=== PATIENT | female | born 1975 | race Caucasian/White ===

== ENCOUNTER 2020-01-04 04:40 | Emergency (ER) | payer SELFPAY ==
[2020-01-04] MEDS ORDERED: Albuterol 200 PUFF (6.7GM INHALER) ONE (04:50)
[2020-01-04] MEDS ORDERED: predniSONE 20 MG TAB ONE (05:35)
--- NOTE | 2020-01-04 07:03 | RAD ---
CHEST 1 VIEW: Date: 01/04/2020 INDICATION: Shortness of breath. Dyspnea. COMPARISON: None. FINDINGS: Lungs are clear. Heart size is normal. No pleural effusion or pneumothorax is evident. No acute osseo us abnormality is noted. IMPRESSION: No acute cardiopulmonary abnormality. POS: BH
--- NOTE | 2020-01-05 13:43 | EKG ---
Test Reason : Blood Pressure : / mmHG Vent. Rate : 102 BPM Atrial Rate : 102 BPM P-R Int : 136 ms QRS Dur : 090 ms QT Int : 350 ms P-R-T Axes : 076 063 064 degrees QTc Int : 456 ms Sinus tachycardia Otherwise normal ECG Confirmed by LYNN CONWAY ([id number]), assignment desk editor YOSSI RUBY ([id number]) on 01/05/2020 1:43:06 PM Referred By: Confirmed By:LYNN CONWAY
== END 2020-01-04 05:45 | disposition home or self-care (01) ==
LOC: ERS 04:40
DX: J98.01 Acute bronchospasm (principal); Z87.891 Personal history of nicotine dependence
CPT/HCPCS: 71045; 93005; J7512

== ENCOUNTER 2022-11-04 22:20 | Emergency (ER) | payer SELFPAY ==
[2022-11-04 23:11] LABS: Hemoglobin 16.2 g/dL (12.0-16.0); Mean Corpuscular HGB CONC 33.4 g/dL (32.0-36.0); Mean Corpuscular Hemoglobin 33.7 pg (27.0-31.0); Mean Platelet Volume 6.2 fL (7.4-10.4); Platelet Count 332 10x3/uL (130-400); RBC Distribution Width 12.7 % (11.5-14.5); Red Blood Cell (RBC) Count 4.79 mill/uL (4.20-5.40)
[2022-11-04 23:23] LABS: Bilirubin Negative (Negative); Blood, Urine Negative (Negative); Clarity Clear (Clear); Glucose, Urine (Dipstick) Normal (Negative); Ketone, Urine Negative (Negative); Leukocyte Negative Leu/uL (Negative); Nitrite Negative (Negative); Protein, Urine (Dipstick) 10 mg/dL (Neg-Trace); Specific Gravity, Urine 1.023 (1.002-1.036); Urobilinogen 3 mg/dL (Less than 2); pH, Urine 7.5 (5.0-9.0)
[2022-11-04 23:26] LABS: ALT (SGPT) 23 U/L (8-55); AST (SGOT) 22 U/L (5-34); Albumin 4.1 g/dL (3.5-5.0); Alkaline Phosphatase 80 U/L (40-110); Anion Gap 16 mmol/L (10-20); BUN (Urea Nitrogen) 14 mg/dL (7.0-18.7); Bilirubin, Total 0.4 mg/dL (0.2-1.2); Calc. Creatinine Clearance 0 mL/min (70-130); Calcium 9.4 mg/dL (7.8-10.44); Carbon Dioxide 20 mmol/L (22-29); Chloride 106 mmol/L (98-107); Estimated GFR 92; Globulin 3.3 g/dL (2.4-3.5); Glucose 102 mg/dL (70-105); Potassium 4.6 mmol/L (3.5-5.1); Protein, Total 7.4 g/dL (6.0-8.3); Sodium 137 mmol/L (136-145)
[2022-11-04 23:38] LABS: Eosinophils 6 % (0-10); Lymphocytes 44 % (21-51); MDiff Complete? YES; Monocytes 2 % (0-10); Neutrophil 48 % (42-75); Platelet Morphology Comment Appears Adequate; RBC Morphology Normal
[2022-11-05] MEDS ORDERED: Dexamethasone 10 MG/ML VIAL ONE (01:15)
[2022-11-05] MEDS ORDERED: Ipratropium/Albuterol 3 ML NEB ONE ×3 (01:15→01:41)
[2022-11-05] MEDS ORDERED: Aspirin Chewable 81 MG TAB ONE (01:15)
[2022-11-05] MEDS ORDERED: Magnesium 2 GM/50 ML BAG (IN WATER) ONE (01:41)
[2022-11-05 02:40] LABS: SARS-CoV-2 NAA Rapid Test Not Detected (NotDetected)
== END 2022-11-05 03:45 | disposition home or self-care (01) ==
LOC: ERS 22:20
DX: R07.9 Chest pain, unspecified (principal); R06.00 Dyspnea, unspecified; Z20.822 Contact with and (suspected) exposure to COVID-19; Z87.891 Personal history of nicotine dependence
CPT/HCPCS: 36415; 71045; 80053; 81003; 83880; 84484; 85025; 93005; 94640; 96365; J1100; J3475; J7620

== ENCOUNTER 2023-09-26 20:16 | Emergency (ER) | payer OTHER, SELFPAY ==
[2023-09-26] MEDS ORDERED: Ketorolac Tromethamine 30 MG (1 mL) VIAL ONE (20:39)
[2023-09-26] MEDS ORDERED: Morphine 4 MG/ML VIAL ONE (21:08)
[2023-09-26] MEDS ORDERED: HYDROcodone/Acetaminophen 5/325 mg Tablet ONE (21:46)
== END 2023-09-26 21:54 | disposition home or self-care (01) ==
LOC: ERS 20:16
DX: S42.351A Displaced comminuted fracture of shaft of humerus, right arm, initial encounter for closed fracture (principal); S42.251A Displaced fracture of greater tuberosity of right humerus, initial encounter for closed fracture; W01.0XXA Fall on same level from slipping, tripping and stumbling without subsequent striking against object, initial encounter; Y93.01 Activity, walking, marching and hiking; Z87.891 Personal history of nicotine dependence
CPT/HCPCS: 96372; J1885; J2270